=== PATIENT | male | born 1950 | race Caucasian/White ===

== ENCOUNTER 2019-05-04 10:04 | Emergency (ER) | payer OTHER, MEDICAID ==
[~2019-05-04] VITALS: Ht 162.6 cm; Wt 71.4 kg
[2019-05-04 10:12] VITALS: BP 148/95
--- NOTE | 2019-05-04 10:19 | NUR ---
PATIENT AMBULATED TO BED 4 AT THIS TIME.
[2019-05-04] MEDS ORDERED: KETOROLAC 60 MG/2 ML VIAL IM ONE (10:45)
--- NOTE | 2019-05-04 10:59 | NUR ---
PT BIB SELFG WITH C/O PAIN AT L LEG PAIN SINCE LAST YEAR. DENIES RECENT INJURY OR FALL. PAIN 7/10 AT THIS TIME. NO SWELLING AT THE SITE, CMS PRESENT. DENIES ANY PAST MEDICAL HX, DENIES ANY HX AT THIS TIME. TAKES NAPROSYN AT HOME. PT MADE COMFORTABLE, RESTING IN HIS BED. BED AT LOWER PSOITION, SIDE RAILS UP X2. PT SEEN BY ER MD. WILL CONTINUE TO MONITOR PT.
[2019-05-04 12:20] VITALS: BP 121/83
--- NOTE | 2019-05-04 12:21 | NUR ---
Patient discharged with v/s stable. Written and verbal after care instructions given and explained. Patient alert, oriented and verbalized understanding of instructions. Ambulatory with steady gait. All questions addressed prior to discharge. ID band removed. Patient advised to follow up with PMD. Rx of ROBAXIN AND MOTRIN given. Patient educated on indication of medication including possible reaction and side effects. Opportunity to ask questions provided and answered.
== END 2019-05-04 12:21 | disposition home or self-care (01) ==
LOC: MED 10:04
DX: M54.5 Low back pain (principal)
CPT/HCPCS: 96372; 99283; J1885

== ENCOUNTER 2019-12-12 12:09 | Emergency (ER) | payer OTHER, MEDICAID ==
[~2019-12-12] VITALS: Ht 160 cm; Wt 68.0 kg
[2019-12-12 12:26] VITALS: BP 121/71
--- NOTE | 2019-12-12 12:37 | NUR ---
C/O EXACERBATED LOWER BACK PAIN RADIATING LLE ADDS TAKING NAPROXEN WITH MINIMAL RELIEF ,PT AWAKE , ALERT, AMBULATORY WITH STEADY GAIT, NO SENSORY NOR MOTOR DEFICIT ON LOWER EXTREMITY. HX--BACK PAIN RX--NAPROXEN
--- NOTE | 2019-12-12 13:00 | NUR ---
dr carson at bedside evaluating pt.
[2019-12-12] MEDS ORDERED: KETOROLAC 30 MG/ML VIAL IM ONE (13:15)
--- NOTE | 2019-12-12 14:13 | NUR ---
PT COMFORTABLE ON BED , AWAKE , ALERT. PAIN AT 5/10.
--- NOTE | 2019-12-12 14:28 | NUR ---
ARELI CORLEY AT BEDSIDE REEVALUATING PT.
[2019-12-12 14:47] VITALS: BP 121/71
--- NOTE | 2019-12-12 14:47 | NUR ---
Patient discharged with v/s stable. Written and verbal after care instructions given and explained regarding low back pain. Patient alert, oriented and verbalized understanding of instructions. Ambulatory with steady gait. All questions addressed prior to discharge. ID band removed. Patient advised to follow up with PMD. Rx of norco and ibuprofen given. Patient educated on indication of medication including possible reaction and side effects. Opportunity to ask questions provided and answered.
== END 2019-12-12 14:47 | disposition home or self-care (01) ==
LOC: MED 12:09
DX: M54.5 Low back pain (principal); G89.29 Other chronic pain; R31.9 Hematuria, unspecified
CPT/HCPCS: 81002; 96372; 99283; J1885

== ENCOUNTER 2022-04-07 19:40 | Emergency (ER) | payer OTHER, MEDICAID ==
[~2022-04-07] VITALS: Ht 160 cm; Wt 68.0 kg
[2022-04-07 19:49] VITALS: BP 122/73
--- NOTE | 2022-04-07 19:55 | NUR ---
PT AMBULATED TO BED #09
[2022-04-07] MEDS ORDERED: ACETAMINOPHEN EXTRA STRENGTH 500 MG TAB PO ONE (20:20)
[2022-04-07 20:41] LABS: BASOPHILS % (AUTO) 0.5 % (0.0-2.0); EOSINOPHILS # (AUTO) 0.3 K/uL (0-0.4); EOSINOPHILS % (AUTO) 3.3 % (0.0-4.0); HEMATOCRIT 40.8 % (36-52); HEMOGLOBIN 13.7 g/dL (12.0-18.0); LYMPHOCYTES # (AUTO) 1.3 K/uL (2.0-11.5); LYMPHOCYTES % (AUTO) 17.1 % (20.5-51.1); MEAN CORPUSCULAR HEMOGLOBIN 31 pg (27-31); MEAN CORPUSCULAR HGB CONC 34 g/dL (33-37); MEAN CORPUSCULAR VOLUME 91.2 fL (80-94); MONOCYTES # (AUTO) 0.7 K/uL (0.8-1.0); MONOCYTES % (AUTO) 8.7 % (1.7-9.3); NEUTROPHILS # (AUTO) 5.3 K/uL (1.8-7.7); NEUTROPHILS % (AUTO) 70.4 % (42.2-75.2); PLATELET COUNT (AUTO) 229 K/uL (140-450); RED BLOOD CELL COUNT(AUTO) 4.48 MIL/uL (4.20-6.10); RED CELL DISTRIBUTION WIDTH 14.9 % (11.6-13.7); WHITE BLOOD COUNT (AUTO) 7.5 K/uL (4.8-10.8)
--- NOTE | 2022-04-07 21:01 | NUR ---
X-Ray at bedside.
[2022-04-07 21:06] LABS: ALBUMIN 3.2 g/dL (3.4-5.0); ANION GAP 12.1 (8-16); ASPARTATE AMINOTRANSFERASE 16 U/L (15-37); CARBON DIOXIDE 26.5 mmol/L (21-32); CHLORIDE 109 mmol/L (98-107); CREATININE 1.2 mg/dL (0.6-1.3); GLUCOSE 126 mg/dL (74-106); POTASSIUM 3.6 mmol/L (3.5-5.1); SODIUM SERUM 144 mmol/L (136-145); TOTAL BILIRUBIN 0.5 mg/dL (0.0-1.0); UREA NITROGEN, BLOOD 17 mg/dL (7-18)
[2022-04-07] MEDS ORDERED: LID5T TP (22:11)
[2022-04-07] MEDS ORDERED: NAPR-1559 PO (22:11)
--- NOTE | 2022-04-07 22:57 | NUR ---
Patient appears to be resting comfortably in bed- semi fowlers and on the phone. Vital Signs within normal limits. Respirations even and unlabored. Safety measures are in place and will continue to monitor patient.
[2022-04-08 00:01] VITALS: BP 116/66
--- NOTE | 2022-04-08 00:01 | NUR ---
Patient discharged. Written and verbal after care instructions given and explained fatigue and sciatica. Patient alert, oriented and verbalized understanding of instructions. Ambulatory with steady gait. All questions addressed prior to discharge. ID band removed. Patient advised to follow up with PMD. Rx of Lidoderm 5% patch and naproxen given. Patient educated on indication of medication including possible reaction and side effects. Opportunity to ask questions provided and answered.
== END 2022-04-08 00:01 | disposition home or self-care (01) ==
LOC: MED 19:40
DX: R53.83 Other fatigue (principal); M54.30 Sciatica, unspecified side; I10 Essential (primary) hypertension
CPT/HCPCS: 36415; 71045; 80053; 84484; 85025; 93005; 99285

== ENCOUNTER 2022-04-12 00:07 | Emergency (ER) | payer OTHER, MEDICAID ==
[~2022-04-12] VITALS: Ht 160 cm; Wt 69.9 kg
[~2022-04-12 00:07] MED LIST: LID5T TP; NAPR-1559 PO
[2022-04-12 00:15] VITALS: BP 162/81
--- NOTE | 2022-04-12 00:18 | NUR ---
TO LOBBY A/W BED AMBULATORY
--- NOTE | 2022-04-12 00:45 | NUR ---
72 Y.O. M BIB SELF C/O LEFT FLANK PAIN, STARTED TODAY. PAIN IS 5/10 IN LLQ. DENIES N/V/D. LAST BM WAS THIS MORNING. DENIES SON AND CHEST PAIN. A&OX4, SKIN INTACT, VITALS WNL FOR PT, AND STEADY GAIT. HX:DIVERTICULOSIS, HTN NKA
--- NOTE | 2022-04-12 00:48 | NUR ---
PT AMBULATED TO BED 4
[2022-04-12] MEDS ORDERED: ONDANSETRON 4 MG/2 ML VIAL IVP ONE (01:10)
[2022-04-12] MEDS ORDERED: MORPHINE SULFATE 4 MG/ML SYR IVP ONE (01:10)
[2022-04-12 01:22] LABS: APPEARANCE,URINE CLEAR (CLEAR); BILIRUBIN,URINE NEGATIVE (NEGATIVE); BLOOD, URINE 3+ (NEGATIVE); COLOR,URINE YELLOW (YELLOW); LEUKOCYTE ESTERASE ,URINE NEGATIVE (NEGATIVE); NITRITE, URINE NEGATIVE (NEGATIVE); UGLUCOSE NEGATIVE (NEGATIVE)
[2022-04-12 01:23] LABS: BASOPHILS % (AUTO) 0.4 % (0.0-2.0); EOSINOPHILS # (AUTO) 0.3 K/uL (0-0.4); EOSINOPHILS % (AUTO) 3.1 % (0.0-4.0); HEMATOCRIT 37.9 % (36-52); HEMOGLOBIN 12.7 g/dL (12.0-18.0); LYMPHOCYTES # (AUTO) 1.3 K/uL (2.0-11.5); LYMPHOCYTES % (AUTO) 15.4 % (20.5-51.1); MEAN CORPUSCULAR HEMOGLOBIN 31 pg (27-31); MEAN CORPUSCULAR HGB CONC 34 g/dL (33-37); MEAN CORPUSCULAR VOLUME 91.1 fL (80-94); MONOCYTES # (AUTO) 0.6 K/uL (0.8-1.0); MONOCYTES % (AUTO) 6.5 % (1.7-9.3); NEUTROPHILS # (AUTO) 6.4 K/uL (1.8-7.7); NEUTROPHILS % (AUTO) 74.6 % (42.2-75.2); PLATELET COUNT (AUTO) 202 K/uL (140-450); RED BLOOD CELL COUNT(AUTO) 4.16 MIL/uL (4.20-6.10); RED CELL DISTRIBUTION WIDTH 14.9 % (11.6-13.7); WHITE BLOOD COUNT (AUTO) 8.6 K/uL (4.8-10.8)
--- NOTE | 2022-04-12 01:30 | NUR ---
PT TAKEN TO CT VIA WHEELCHAIR
[2022-04-12 01:34] LABS: RBC,URINE >100 /HPF (0-5); WBC,URINE 0-5 /HPF (0-5)
[2022-04-12 01:40] LABS: ALBUMIN 3.2 g/dL (3.4-5.0); ANION GAP 8.7 (8-16); ASPARTATE AMINOTRANSFERASE 15 U/L (15-37); CARBON DIOXIDE 25.4 mmol/L (21-32); CHLORIDE 106 mmol/L (98-107); CREATININE 0.9 mg/dL (0.6-1.3); GLUCOSE 115 mg/dL (74-106); LIPASE 124 U/L (73-393); POTASSIUM 4.1 mmol/L (3.5-5.1); SODIUM SERUM 136 mmol/L (136-145); TOTAL BILIRUBIN 0.4 mg/dL (0.0-1.0); UREA NITROGEN, BLOOD 26 mg/dL (7-18)
--- NOTE | 2022-04-12 01:44 | NUR ---
PT BROUGHT BACK FROM CT
[2022-04-12] MEDS ORDERED: BEN10 PO (05:21)
[2022-04-12 05:34] VITALS: BP 159/83
--- NOTE | 2022-04-12 05:35 | NUR ---
Patient discharged with v/s stable. Written and verbal after care instructions given and explained. Patient alert, oriented and verbalized understanding of instructions. Ambulatory with steady gait. All questions addressed prior to discharge. ID band removed. Patient advised to follow up with PMD. Rx of BENTYL given. Patient educated on indication of medication including possible reaction and side effects. Opportunity to ask questions provided and answered.
== END 2022-04-12 05:30 | disposition home or self-care (01) ==
LOC: MED 00:07
DX: R10.32 Left lower quadrant pain (principal); I10 Essential (primary) hypertension; Z98.890 Other specified postprocedural states; Z79.899 Other long term (current) drug therapy
CPT/HCPCS: 36415; 74176; 80053; 81001; 83690; 85025; 87086; 96374; 96375; 99285; J2270; J2405

== ENCOUNTER 2023-03-16 10:08 | Emergency (ER) | payer OTHER, MEDICAID ==
[~2023-03-16] VITALS: Ht 165.1 cm; Wt 77.1 kg
[~2023-03-16 10:08] MED LIST changes: +BEN10 PO
[2023-03-16 10:14] VITALS: BP 154/75
--- NOTE | 2023-03-16 11:14 | NUR ---
PATIENT AMBULATORY TO BED 01
[2023-03-16] MEDS ORDERED: KETOROLAC 30 MG/ML VIAL IM ONE (12:05)
[2023-03-16] MEDS ORDERED: ACETAMINOPHEN EXTRA STRENGTH 500 MG TAB PO ONE (12:05)
[2023-03-16 12:27] LABS: APPEARANCE,URINE CLEAR (CLEAR); BILIRUBIN,URINE NEGATIVE (NEGATIVE); BLOOD, URINE 2+ (NEGATIVE); COLOR,URINE YELLOW (YELLOW); LEUKOCYTE ESTERASE ,URINE NEGATIVE (NEGATIVE); NITRITE, URINE NEGATIVE (NEGATIVE); PH,URINE 5.5 (5.0-9.0); UGLUCOSE NEGATIVE (NEGATIVE)
[2023-03-16 12:27] LABS: BASOPHILS % (AUTO) 0.5 % (0.0-2.0); EOSINOPHILS # (AUTO) 0.2 K/uL (0-0.4); EOSINOPHILS % (AUTO) 2.5 % (0.0-4.0); HEMATOCRIT 42.4 % (36-52); HEMOGLOBIN 14.2 g/dL (12.0-18.0); LYMPHOCYTES # (AUTO) 1.2 K/uL (2.0-11.5); LYMPHOCYTES % (AUTO) 12.9 % (20.5-51.1); MEAN CORPUSCULAR HEMOGLOBIN 31 pg (27-31); MEAN CORPUSCULAR HGB CONC 33 g/dL (33-37); MEAN CORPUSCULAR VOLUME 92.1 fL (80-94); MONOCYTES # (AUTO) 0.6 K/uL (0.8-1.0); MONOCYTES % (AUTO) 7.1 % (1.7-9.3); NEUTROPHILS # (AUTO) 6.9 K/uL (1.8-7.7); PLATELET COUNT (AUTO) 225 K/uL (140-450); RED BLOOD CELL COUNT(AUTO) 4.61 MIL/uL (4.20-6.10); RED CELL DISTRIBUTION WIDTH 15.2 % (11.6-13.7)
[2023-03-16 12:43] LABS: RBC,URINE 11-20 (MOD) /HPF (0-5)
[2023-03-16 12:48] LABS: ALBUMIN 3.4 g/dL (3.4-5.0); ANION GAP 12.1 (8-16); ASPARTATE AMINOTRANSFERASE 17 U/L (15-37); CARBON DIOXIDE 28.6 mmol/L (21-32); CHLORIDE 105 mmol/L (98-107); CREATININE 0.8 mg/dL (0.6-1.3); GLUCOSE 96 mg/dL (74-106); POTASSIUM 4.7 mmol/L (3.5-5.1); SODIUM SERUM 141 mmol/L (136-145); TOTAL BILIRUBIN 0.8 mg/dL (0.0-1.0); UREA NITROGEN, BLOOD 18 mg/dL (7-18)
[2023-03-16] MEDS ORDERED: NAPR-54 PO (14:37)
[2023-03-16] MEDS ORDERED: ACET-10509 PO (14:38)
--- NOTE | 2023-03-16 15:06 | NUR ---
Patient discharged with v/s stable. Written and verbal after care instructions given and explained. Patient alert, oriented and verbalized understanding of instructions. Ambulatory with steady gait. All questions addressed prior to discharge. ID band removed. Patient advised to follow up with PMD. Rx of NAPRSYN given. Patient educated on indication of medication including possible reaction and side effects. Opportunity to ask questions provided and answered.
== END 2023-03-16 15:06 | disposition home or self-care (01) ==
LOC: MED 10:08
DX: M54.40 Lumbago with sciatica, unspecified side (principal); I10 Essential (primary) hypertension; Z79.899 Other long term (current) drug therapy
CPT/HCPCS: 36415; 72131; 80053; 81001; 85025; 96372; 99285; J1885